=== PATIENT | male | born 1965 | race Caucasian/White ===

== ENCOUNTER 2023-10-10 00:17 | Emergency (ER) | payer OTHER ==
--- NOTE | 2023-10-10 00:34 | ED Physician Documentation ---
PD HPI ABD PAIN - Stated complaint Stated Complaint: NAUSEA/VOMITING - Chief complaint Chief Complaint: Abd Pain - History obtained from History obtained from: Patient - Additional information Additional information: 58-year-old male with history of hypertension presents by private vehicle from home for abdominal bloating with nausea and vomiting. Patient states that over the last several months he has had intermittent bloating, but approximately 3 hours ago he felt like he "blew up" and his bloating sensation is much worse than usual. Denies new or strange foods, denies known sick contacts. Reports history of hernia repair approximately 15 years ago, no other intra-abdominal surgeries. Review of Systems Constitutional: denies: Fever, Chills Cardiac: denies: Chest pain / pressure, Palpitations, Calf pain Respiratory: denies: Dyspnea, Cough, Wheezing GI: reports: Abdominal Swelling, Nausea, Vomiting, Diarrhea. denies: Constipation : denies: Dysuria, Frequency, Hesitancy Neurologic: denies: Generalized weakness, Focal weakness, Numbness PD PAST MEDICAL HISTORY - Past Medical History Past Medical History: Yes - Past Surgical History Past Surgical History: No - Present Medications Home Medications: Ambulatory Orders Medication Instructions Recorded Confirmed Ondansetron Odt [Zofran] 4 mg TL Q6H PRN #30 tablet 10/10/23 - Allergies Allergies/Adverse Reactions: Allergies Allergy/AdvReac Type Severity Reaction Status Date / Time No Known Drug Allergies Allergy Verified 10/10/23 00:32 - Social History Does the pt smoke?: No Smoking Status: Never smoker Does the pt drink ETOH?: No Does the pt have substance abuse?: No - Immunizations Immunizations are current?: Yes - POLST Patient has POLST: No PD ED PE NORMAL - Vitals Vital signs reviewed: Yes - General General: Alert and oriented X 3, No acute distress, Well developed/nourished - Cardiac Cardiac: RRR, Strong equal pulses - Respiratory Respiratory: No respiratory distress, Clear bilaterally - Abdomen Abdomen: Soft, Non tender, Non distended - Derm Derm: Normal color, Warm and dry, No rash - Neuro Neuro: Alert and oriented X 3, 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, No motor deficit, Normal speech Results - Vitals Vitals: Vital Signs - 24 hr 10/10/23 10/10/23 00:30 02:16 Temperature 36.6 C Heart Rate 84 91 Respiratory 20 16 Rate Blood Pressure 180/100 H 160/100 H O2 Saturation 99 97 Oxygen O2 Source Room air - Labs Labs: Laboratory Tests 10/10/23 10/10/23 10/10/23 00:40 00:46 00:46 WBC 13.4 H RBC 5.06 Hgb 15.9 Hct 46.2 MCV 91.3 MCH 31.4 H MCHC 34.4 RDW 12.7 Plt Count 211 MPV 11.9 H Neut # (Auto) 10.8 H Lymph # (Auto) 1.8 [place] # (Auto) 0.6 Eos # (Auto) 0.1 Baso # (Auto) 0.1 Absolute Nucleated RBC 0.00 Nucleated RBC % 0.0 Sodium 138 Potassium 3.0 L Chloride 99 L Carbon Dioxide 28 Anion Gap 11.0 BUN 12 Creatinine 1.1 Estimated GFR (MDRD) 68 L Glucose 151 H Lactic Acid Calcium 9.6 Total Bilirubin 0.5 AST 19 ALT 24 Alkaline Phosphatase 80 Total Protein 7.7 Albumin 4.8 Globulin 2.9 Albumin/Globulin Ratio 1.7 Lipase 23 Urine Color YELLOW Urine Clarity CLEAR Urine pH 7.0 Ur Specific [place] 1.020 Urine Protein NEGATIVE Urine Glucose (UA) NEGATIVE Urine Ketones NEGATIVE Urine Occult Blood NEGATIVE Urine Nitrite NEGATIVE Urine Bilirubin NEGATIVE Urine Urobilinogen 0.2 (NORMAL) Ur Leukocyte Esterase NEGATIVE Ur Microscopic Review NOT INDICATED Urine Culture Comments NOT INDICATED 10/10/23 00:46 WBC RBC Hgb Hct MCV MCH MCHC RDW Plt Count MPV Neut # (Auto) Lymph # (Auto) [place] # (Auto) Eos # (Auto) Baso # (Auto) Absolute Nucleated RBC Nucleated RBC % Sodium Potassium Chloride Carbon Dioxide Anion Gap BUN Creatinine Estimated GFR (MDRD) Glucose Lactic Acid 2.4 H Calcium Total Bilirubin AST ALT Alkaline Phosphatase Total Protein Albumin Globulin Albumin/Globulin Ratio Lipase Urine Color Urine Clarity Urine pH Ur Specific [place] Urine Protein Urine Glucose (UA) Urine Ketones Urine Occult Blood Urine Nitrite Urine Bilirubin Urine Urobilinogen Ur Leukocyte Esterase Ur Microscopic Review Urine Culture Comments PD Medical Decision Making - ED course Complexity details: reviewed results, re-evaluated patient, considered differential, d/w patient ED course: Well-appearing patient with several hours of symptoms. Abdomen is soft, no peritoneal signs, no fluid wave, not tympanic. Hemodynamically stable. Laboratory work and imaging to be obtained. Antinausea medications and IV fluids ordered. Laboratory work is reviewed, mild leukocytosis, expected in acute vomiting. Patient also has mild hypokalemia with potassium 3.0, also expected in acute vomiting. EKG normal sinus rhythm without concerning findings. CT of the abdomen and pelvis showed several incidental findings including a small pulmonary nodule and an adrenal nodule, but no GI findings to explain patient's bloating and vomiting. After receiving Zofran and IV fluids patient was able to tolerate p.o. fluids and stated that he felt much better. Labs and imaging counseled with patient and his significant other at bedside. Recommended PCP follow-up for the incidental nodules found, otherwise Zofran sent to pharmacy of choice and a brat diet counseled for the next day or 2 while recovering from vomiting. Patient counseled to keep a food journal to see if he can identify what causes the abdominal discomfort and bloating. Departure - Departure Disposition: 01 Home, Self Care Clinical Impression: Abdominal pain Condition: Stable Instructions: ED Diet Vomiting Diarrhea Prescriptions: Ondansetron Odt [Zofran] 4 mg TL Q6H PRN #30 tablet PRN Reason: Nausea / Vomiting Comments: Your laboratory work today showed that you have very mild low potassium, which is likely related to your vomiting. Otherwise your CT scan did not show any obvious reasons for why you are having vomiting and bloating. There were several incidental findings that I recommend following up with your primary care doctor about. First there was a very small, 4 mm pulmonary nodule on the left side of your lungs. If you have risk factors for lung cancer is recommended to have a repeat image performed in 1 year. You also had a 2.7 cm right adrenal nodule. Many times these are benign, however I recommend following up with your primary care doctor for further recommendations on this finding. I also recommend increasing your amlodipine to 10 mg daily from 5 mg daily. Antinausea medication has been sent to the [facility] [place] Forms: PCP List Discharge Date/Time: 10/10/23 02:34
[2023-10-10] MEDS ORDERED: iohexoL-300 100 ML VIAL ONE (00:42)
[2023-10-10] MEDS: SODIUM CHLORIDE 0.9% 1,000 ML IV STA (00:49)
[2023-10-10] MEDS: ONDANSETRON 4 MG/2 ML VIAL IVP STA (00:49)
[2023-10-10 00:52] LABS: BASOPHILS # (AUTO) 0.1 10^3/uL (0.0-0.1); BASOPHILS % (AUTO) 0.4 %; EOSINOPHILS # (AUTO) 0.1 10^3/uL (0.0-0.7); EOSINOPHILS % (AUTO) 0.7 %; HCT - HEMATOCRIT 46.2 % (42.0-52.0); HGB - HEMOGLOBIN 15.9 g/dL (14.0-18.0); LYMPHOCYTES # (AUTO) 1.8 10^3/uL (1.5-3.5); LYMPHOCYTES % (AUTO) 13.6 %; MEAN CORPUSCULAR HEMOGLOBIN 31.4 pg (27.0-31.0); MEAN CORPUSCULAR HGB CONC 34.4 g/dL (32.0-36.0); MEAN CORPUSCULAR VOLUME 91.3 fL (80.0-94.0); MEAN PLATELET VOLUME 11.9 fL (7.4-11.4); MONOCYTES # (AUTO) 0.6 10^3/uL (0.0-1.0); MONOCYTES % (AUTO) 4.4 %; NEUTROPHILS # (AUTO) 10.8 10^3/uL (1.5-6.6); NEUTROPHILS % (AUTO) 80.5 %; PLT - PLATELET COUNT 211 10^3/uL (130-450); RED BLOOD COUNT 5.06 10^6/uL (4.70-6.10); RED CELL DISTRIBUTION WIDTH 12.7 % (12.0-15.0); WHITE BLOOD COUNT 13.4 x10^3/uL (4.8-10.8)
[2023-10-10 01:05] LABS: ALBUMIN 4.8 g/dL (3.2-5.5); ALBUMIN/GLOBULIN RATIO 1.7 (1.0-2.2); BILIRUBIN,TOTAL 0.5 mg/dL (0.2-1.0); CALCIUM 9.6 mg/dL (8.5-10.3); CREATININE 1.1 mg/dL (0.6-1.3); TOTAL PROTEIN 7.7 g/dL (6.4-8.9)
[2023-10-10 01:06] LABS: BILIRUBIN,URINE NEGATIVE (NEGATIVE); GLUCOSE, URINE (UA) NEGATIVE (NEGATIVE); KETONES,URINE (UA) NEGATIVE (NEGATIVE); LEUKOCYTE ESTERASE, URINE NEGATIVE (NEGATIVE); NITRITE,URINE NEGATIVE (NEGATIVE); OCCULT BLOOD,URINE NEGATIVE (NEGATIVE); PROTEIN,URINE NEGATIVE (NEGATIVE); UROBILINOGEN,URINE 0.2 (NORMAL) E.U./dL (NORMAL)
[2023-10-10 01:12] LABS: CLARITY,URINE CLEAR (CLEAR)
[2023-10-10] MEDS: iohexoL-300 100 ML VIAL IVP ONE (01:26)
--- NOTE | 2023-10-10 02:12 | CT Report ---
PROCEDURE: Abdomen/Pelvis W INDICATIONS: N/V/ABD BLOATING/DISTENSION X 3 HRS CONTRAST: OMNI 300, 100mls TECHNIQUE: After the administration of intravenous contrast, a CT scan of the abdomen and pelvis was performed. Images were recorded and evaluated at appropriate window settings. Reformats: coronal and sagittal. F or radiation dose reduction, the following was used: automated exposure control, adjustment of mA and /or kV according to patient size. COMPARISON: None. FINDINGS: Image quality: Diagnostic. Lower chest: Left lower lobe 4 mm solid pulmonary nodule (8/) Liver: No solid mass. Gallbladder: No radiopaque stones or wall thickening. Biliary tree: No intrahepatic or extrahepatic dilation, accounting for age. Spleen: No splenomegaly. Pancreas: No pancreatic ductal dilation. Adrenals: Right adrenal 2.7 cm nodule. Kidneys and ureters: No hydronephrosis. No renal cystic lesion which requires follow up. No solid mas s. Stomach, bowel and peritoneum: No gastric or small bowel dilation. No abnormal wall thickening. No pa thologic free fluid. Diverticulosis without evidence of diverticulitis. Lymph nodes: No central or retroperitoneal adenopathy. Vessels: No infrarenal aortic aneurysm. Patent portal vein. PELVIS Reproductive organs: Unremarkable. Bladder: No abnormal wall thickening, accounting for underdistention. Pelvic lymph nodes: No pelvic adenopathy by size criteria. Bones: No aggressive osseous abnormality. Other: No significant ventral or inguinal hernia. IMPRESSION: No acute abdominopelvic process. Colonic diverticulosis without CT evidence of acute diverticulitis. Left lower lobe 4 mm solid pulmonary nodule. If the patient is high risk for lung malignancy, recomme nd CT chest in 12 months to demonstrate stability per Fleischner Society guidelines. Right 2.7 cm adrenal nodule. Finding is indeterminate. Recommend further evaluation with nonemergent CT or MR adrenal protocol. Reviewed by: Aileen Chanel MD, PhD on 10/10/2023 2:10 AM PDT Approved by: Aileen Chanel MD, PhD on 10/10/2023 2:10 AM PDT Station ID: [id number]
[2023-10-10 02:17] VITALS: BP 160/100; O2SAT 97
== END 2023-10-10 02:34 | disposition home or self-care (01) ==
LOC: ED 00:17
DX: R10.9 Unspecified abdominal pain (principal); R11.2 Nausea with vomiting, unspecified; R19.7 Diarrhea, unspecified; I10 Essential (primary) hypertension
CPT/HCPCS: 36415; 74177; 80053; 81003; 83605; 83690; 85025; 93005; 96374; 99284; Q9967; 81001; 87086